=== PATIENT | male | born 1990 | race Two or more races ===

== ENCOUNTER 2019-06-22 20:29 | Emergency (ER) | payer OTHER ==
[~2019-06-22] VITALS: Ht 188 cm; Wt 74.8 kg
[2019-06-22 20:52] VITALS: BP 124/67
--- NOTE | 2019-06-22 20:52 | NUR ---
PT BIBSELF C/C RIGHT LOWER BACK PAIN AND R SIDED ABD PAIN X1MO, URINE IS "DARKER", -DYSURIA/ PT AOX4. NAD NOTED. RESP EVEN AND UNLABORED. PT AMBULATORY. PT STATES "I FEEL LIKE MY DOCTOR IS NOT DOING ANYTHING ABOUT IT". PT ON MONITOR IN BED 2. WILL CONTINUE TO MONITOR.
[2019-06-22] MEDS ORDERED: ACETAMINOPHEN ES 500 MG TABLET ONE (21:21)
--- NOTE | 2019-06-22 21:21 | NUR ---
PHLEB AT BEDSIDE FOR LAB DRAW
[2019-06-22] MEDS ORDERED: IBUPROFEN 600 MG TABLET PO ONE ×2 (21:22→21:30)
[2019-06-22 21:23] LABS: APPEARANCE,URINE Clear (CLEAR); BILIRUBIN,URINE Negative (NEGATIVE); BLOOD, URINE Negative Ery/uL (NEGATIVE); COLOR,URINE Yellow (YELLOW); KETONES,URINE Negative (NEGATIVE); LEUKOCYTE ESTERASE ,URINE Negative (NEGATIVE); NITRITE, URINE Negative (NEGATIVE); PROTEIN,URINE Negative (NEGATIVE); UGLUCOSE Negative (NEGATIVE); UROBILINOGEN,URINE 0.2 EU/dL (0.2)
--- NOTE | 2019-06-22 21:29 | NUR ---
PT TAKEN TO RADIOLOGY VIA WHEELCHAIR
[2019-06-22 21:30] LABS: BASOPHILS % (AUTO) 0.8 % (0.0-2.0); EOSINOPHILS % (AUTO) 1.4 % (0.0-6.0); HEMATOCRIT 44 % (39-51); HEMOGLOBIN 14.7 g/dL (13.5-17.5); LYMPHOCYTES # (AUTO) 1.3 /CMM (0.8-4.8); LYMPHOCYTES % (AUTO) 32.1 % (20.0-44.0); MEAN CORPUSCULAR HGB CONC 34 g/dl (31.0-36.0); MEAN CORPUSCULAR VOLUME 90 fL (80-96); MONOCYTES # (AUTO) 0.3 /CMM (0.1-1.30); MONOCYTES % (AUTO) 8.5 % (2.0-12.0); NEUTROPHILS # (AUTO) 2.3 /CMM (1.8-8.9); NEUTROPHILS % (AUTO) 57.2 % (43.0-81.0); PLATELET COUNT (AUTO) 185 /CMM (150-450); RED BLOOD CELL COUNT(AUTO) 4.86 MIL/uL (4.5-6.0); WHITE BLOOD COUNT (AUTO) 3.9 K/uL (4.3-11.0)
[2019-06-22] MEDS ORDERED: ACETAMINOPHEN ES 500 MG TABLET PO ONE (21:30)
[2019-06-22 21:38] LABS: CREATININE 0.9 mg/dL (0.6-1.3); POTASSIUM 3.5 mmol/L (3.5-5.1)
--- NOTE | 2019-06-22 21:38 | NUR ---
PT RETURNED FROM RADIOLOGY VIA WHEELCHAIR. PT TOLERATED WELL.
[2019-06-22 21:43] LABS: ALBUMIN 4.2 g/dL (3.4-5.0); BILIRUBIN,DIRECT 0.2 mg/dL (0.0-0.2); BILIRUBIN,TOTAL 1.1 mg/dL (0.2-1.0); TOTAL PROTEIN, SERUM 7.1 g/dL (6.4-8.2)
--- NOTE | 2019-06-22 22:40 | NUR ---
Patient discharged to home in stable condition. Written and verbal after care instructions given. Patient verbalizes understanding of instruction.
== END 2019-06-22 22:41 | disposition home or self-care (01) ==
LOC: ER 20:33
DX: M54.5 Low back pain (principal); Z60.2 Problems related to living alone
CPT/HCPCS: 36415; 72110-TC; 80048-TC; 80076-TC; 81000-TC; 83690-TC; 85025-TC; 87086-TC; 87491; 87591